=== PATIENT | male | born 1975 ===

== ENCOUNTER 2017-07-10 15:07 | Emergency (ER) | payer MEDICAID ==
[2017-07-10 15:18] VITALS: BP 157/93; PULSE 109; TEMP 98.2; O2SAT 98
[2017-07-10] MEDS ORDERED: Lidocaine 1% Inj (20ml) INFIL STA (15:28)
[2017-07-10] MEDS ORDERED: Bacitracin 500 Units/gm Oint Foilpak UD TOP ONE (15:28)
[2017-07-10] MEDS ORDERED: Bacitracin 500 Units/gm Oint Foilpak UD ONE (15:32)
[2017-07-10] MEDS ORDERED: Lidocaine 1% Inj (20ml) ONE (15:32)
--- NOTE | 2017-07-10 15:43 | C.PDOC ---
History Of Present Illness 41 y/o male presents to ED with complaints of laceration sustained at work around 3pm today. 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 Time Seen by Provider: 07/10/17 15:22 Chief Complaint (Nursing): Abnormal Skin Integrity History Per: Patient History/Exam Limitations: no limitations Onset/Duration Of Symptoms: Hrs Current Symptoms Are (Timing): Still Present Location Of Injury: Left: Hand Past Medical History Reviewed: Historical Data, Nursing Documentation, Vital Signs Vital Signs: Last Vital Signs Temp 98.2 F 07/10/17 15:17 Pulse 109 H 07/10/17 15:17 Resp 20 07/10/17 16:01 BP 157/93 H 07/10/17 15:17 Pulse Ox 98 07/10/17 15:54 - Medical History PMH: HTN Surgical History: No Surg Hx Family History: States: No Known Family Hx - Social History Hx Alcohol Use: No Hx Substance Use: No - Immunization History Hx Tetanus Toxoid Vaccination: No Hx Influenza Vaccination: No Hx Pneumococcal Vaccination: No Review Of Systems Constitutional: Negative for: Fever, Chills Gastrointestinal: Negative for: Nausea, Vomiting Musculoskeletal: Positive for: Hand Pain (finger laceration) Neurological: Negative for: Weakness, Numbness Physical Exam - Physical Exam Appears: Non-toxic, No Acute Distress Skin: Warm, Dry, No Rash, Other (2.0cm linear superficial laceration to left index finger proximally near MCP joint) Head: Atraumatic, Normacephalic Eye(s): bilateral: Normal Inspection Neck: Normal ROM Chest: Symmetrical Extremity: Normal ROM (tendon function intact), No Tenderness, Capillary Refill (<2 seconds), No Swelling Neurological/Psych: Oriented x3, Normal Speech, Normal Motor, Normal Sensation Gait: Steady ED Course And Treatment O2 Sat by Pulse Oximetry: 98 (RA) Pulse Ox Interpretation: Normal Laceration - Laceration Repair left second digit Wound Length (In cm): 2 Description Of Wound: Linear, Clean Anesthesia: Lidocaine 1% Wound Examination: Irrigated With Saline, No FB With Wound Exploration, No Tendon Injury With Wound Exploration Wound Closure: Suture Suture Technique And Material Used: Interrupted (3), Nylon (4-0) Wound Complexity: Simple Medical Decision Making Medical Decision Making: Finger laceration Laceration repair performed by REGAN. Patient tolerated well, NV intact. Wound cleansed and irrigated with NS, bacitracin and finger splint applied. Disposition Counseled Patient/Family Regarding: Need For Followup, Rx Given - Disposition Referrals: [facility] [Outside] Disposition: HOME/ ROUTINE Disposition Time: 15:42 Condition: STABLE Additional Instructions: Keep area clean and dry. May wash gently with soap and water, do not use alcohol or iodine solution. Change dressing 1-2 times daily. Return to ER if fever occurs, redness or swelling around wound, pus in the wound. Please follow up with your primary doctor, clinic, or urgent care for suture removal in 8-10 days Instructions: Care For Your Stitches (ED) Forms: [employer] (Iraqi) - POA Present On Arrival: None - Clinical Impression Clinical Impression: Finger laceration - PA / ANTIQUE COLLECTOR / Resident Statement MD/DO has reviewed & agrees with the documentation as recorded. - Scribe Statement The provider has reviewed the documentation as recorded by the Raleighibmattie Shannon All medical record entries made by the Raleighibmattie were at my direction and personally dictated by me. I have reviewed the chart and agree that the record accurately reflects my personal performance of the history, physical exam, medical decision making, and the department course for this patient. I have also personally directed, reviewed, and agree with the discharge instructions and disposition.
[2017-07-10 16:01] VITALS: RESP 20
== END 2017-07-10 16:01 | disposition home or self-care (01) ==
LOC: C.ER 15:07
DX: S61.211A Laceration without foreign body of left index finger without damage to nail, initial encounter (principal); W31.89XA Contact with other specified machinery, initial encounter; Y92.89 Other specified places as the place of occurrence of the external cause; Y99.0 Civilian activity done for income or pay

== ENCOUNTER 2017-07-17 10:36 | Emergency (ER) | payer MEDICAID ==
[2017-07-17 10:56] VITALS: PULSE 92; RESP 18; TEMP 97.6; O2SAT 98
--- NOTE | 2017-07-17 11:21 | C.PDOC ---
History Of Present Illness Patient presents to the ER for suture removal for stitches to the left index finger. Patient presented here 7 days prior for laceration repair. Denies fever , numbness, or any other complaints. Time Seen by Provider: 07/17/17 11:01 Chief Complaint (Nursing): Suture/Staple Removal History Per: Patient History/Exam Limitations: no limitations Onset/Duration Of Symptoms: Laceration (Suture removal) Current Symptoms Are (Timing): Gone Severity: Mild Recent travel outside of the [place]: No Additional History Per: Patient Past Medical History Reviewed: Historical Data, Nursing Documentation, Vital Signs Vital Signs: Last Vital Signs Temp 97.6 F 07/17/17 10:49 Pulse 92 H 07/17/17 10:49 Resp 18 07/17/17 10:49 BP 162/110 H 07/17/17 11:27 Pulse Ox 98 07/17/17 11:34 - Medical History PMH: HTN Family History: States: Unknown Family Hx - Social History Hx Alcohol Use: No Hx Substance Use: Yes - Immunization History Hx Tetanus Toxoid Vaccination: No Hx Influenza Vaccination: No Hx Pneumococcal Vaccination: No Review Of Systems Constitutional: Negative for: Fever Neurological: Negative for: Numbness Physical Exam - Physical Exam Appears: Non-toxic, No Acute Distress Skin: Warm, Dry, Other (Healed wound to the proximal, left, dorsal second finger ) Neurological/Psych: Oriented x3, Normal Speech ED Course And Treatment O2 Sat by Pulse Oximetry: 98 (RA) Pulse Ox Interpretation: Normal Medical Decision Making Medical Decision Making: Previous record: * Patient presented here 7 days prior for left finger laceration. Laceration repair was done without any complications. 3 nylon sutures were placed to the area. Plans: Sutures are removed by me Disposition - Disposition Referrals: [facility] [Outside] Disposition: HOME/ ROUTINE Disposition Time: 11:20 Condition: GOOD Additional Instructions: return if worsened. Instructions: Stitches Removal (ED) Forms: [facility] (Malay) - Clinical Impression Clinical Impression: Removal of suture - Scribe Statement The provider has reviewed the documentation as recorded by the Scribe Gwendolyn acuña All medical record entries made by the Scribe were at my direction and personally dictated by me. I have reviewed the chart and agree that the record accurately reflects my personal performance of the history, physical exam, medical decision making, and the department course for this patient. I have also personally directed, reviewed, and agree with the discharge instructions and disposition.
[2017-07-17 11:29] VITALS: BP 162/110
== END 2017-07-17 11:28 | disposition home or self-care (01) ==
LOC: C.ER 10:36
DX: Z48.02 Encounter for removal of sutures (principal)